=== PATIENT | female | born 1995 | race Caucasian/White ===

== ENCOUNTER 2018-03-05 11:39 | Emergency (ER) | payer OTHER ==
[2018-03-05 12:06] VITALS: BP 136/72
--- NOTE | 2018-03-05 12:32 | UC ---
Respiratory Complaint HPI - HPI Summary HPI Summary: The patient is a 22-year-old female that has been ill for 2 weeks. She initially had a few days of fever and chills with nasal congestion and postnasal drip. These resolved and she was left with a cough that has progressively worsened. The cough causes her to have a sore throat. It is productive of sputum. Past 2 days she has had streaks of blood in her phlegm. She denies any recent fever or chills. She denies any chest pain or shortness of breath. She has had no nausea vomiting or diarrhea. - History of Current Complaint Chief Complaint: UCRespiratory Stated Complaint: COUGH Time Seen by Provider: 03/05/18 12:22 Hx Obtained From: Patient Hx Last Menstrual Period: 02/23/18 Onset/Duration: Gradual Onset, Lasting Weeks - 2 Timing: Constant Severity Initially: Mild Severity Currently: Moderate Pain Intensity: 0 Pain Scale Used: 0-10 Numeric Character: Cough: Productive Aggravating Factors: Exertion, Deep Breaths, Recumbent Position Associated Signs And Symptoms: Positive: Hemoptysis, Nasal Congestion. Negative : Dyspnea, Fever, Chills, Pleuritic Chest Pain, Wheezing, Dizziness, Calf Pain, Calf Swelling, Edema, URI, Hoarseness, Sinus Discomfort - Allergies/Home Medications Allergies/Adverse Reactions: Allergies Allergy/AdvReac Type Severity Reaction Status Date / Time No Known Allergies Allergy Verified 03/05/18 12:02 Home Medications: Home Medications Acetaminophen [Tylenol Extra Strength] 500 mg PO ONCE PRN 03/05/18 [History Confirmed 03/05/18] PMH/Surg Hx/FS Hx/Imm Hx Previously Healthy: Yes - Surgical History Surgical History: None - Family History Known Family History: Positive: Cardiac Disease, Hypertension - Social History Alcohol Use: Occasionally Substance Use Type: None Smoking Status (MU): Never Smoked Tobacco - Immunization History Most Recent Influenza Vaccination: [id number] Review of Systems Constitutional: Negative Skin: Negative Eyes: Negative ENT: Sinus Congestion Respiratory: Cough Cardiovascular: Negative Gastrointestinal: Negative Genitourinary: Negative Motor: Negative Neurovascular: Negative Musculoskeletal: Negative Neurological: Negative Psychological: Negative All Other Systems Reviewed And Are Negative: Yes Physical Exam Triage Information Reviewed: Yes Appearance: Well-Appearing, No Pain Distress, Well-Nourished Vital Signs: Initial Vital Signs Temp 98.2 F 03/05/18 12:04 Pulse 78 10/15/18 12:04 Resp 18 03/05/18 12:04 BP 136/72 03/05/18 12:04 Pulse Ox 99 03/05/18 12:04 Vital Signs Reviewed: Yes Eyes: Positive: Conjunctiva Clear ENT: Positive: Hearing grossly normal, Nasal congestion, TMs normal, Uvula midline. Negative: Nasal drainage, Tonsillar swelling, Tonsillar exudate, Trismus, Muffled voice, Hoarse voice, Dental tenderness, Sinus tenderness Neck: Positive: Supple, Nontender, No Lymphadenopathy Respiratory: Positive: Lungs clear, Normal breath sounds, No respiratory distress, No accessory muscle use Cardiovascular: Positive: RRR Musculoskeletal: Positive: ROM Intact, No Edema Neurological: Positive: Alert Psychological Exam: Normal Skin Exam: Normal UC Diagnostic Evaluation - Laboratory O2 Sat by Pulse Oximetry: 99 - normal/not hypoxic Respiratory Course/Dx - Differential Dx/Diagnosis Provider Diagnoses: acute bronchitis Discharge - Sign-Out/Discharge Documenting (check all that apply): Patient Departure All imaging exams completed and their final reports reviewed: No Studies - Discharge Plan Condition: Stable Disposition: HOME Prescriptions: Amoxicillin PO (*) [Amoxicillin 875 MG (*)] 875 mg PO BID #20 tab Patient Education Materials: Acute Bronchitis (ED) Referrals: No Primary Care Phys,NOPCP [Primary Care Provider] - Additional Instructions: I suggest you get rechecked in 4-7 days if not improved Get rechecked sooner for new or worsening symptoms - Billing Disposition and Condition Condition: STABLE Disposition: Home
== END 2018-03-05 12:40 | disposition home or self-care (01) ==
LOC: UCCORT 11:39
DX: J20.9 Acute bronchitis, unspecified (principal)
CPT/HCPCS: 99212; G0463